=== PATIENT | female | born 1965 | race Caucasian/White ===

== ENCOUNTER 2024-06-10 10:27 | Emergency (ER) | payer MEDICARE, SELFPAY ==
--- NOTE | ~2024-06-10 | CT_ITS ---
CLINICAL HISTORY: left breast chest pain pain CT chest with contrast Comparison: None Findings: The heart size is normal. The visualized thyroid and mediastinum are unremarkable. No consolidation or effusion. There are 2 small liver cysts. The bones are intact. IMPRESSION: 1. Unremarkable chest CT. This document has been electronically signed by: Elinor Moore MD on 06/10/2024 14:20:21
[2024-06-10 10:34] VITALS: BP 135/73; PULSE 95; RESP 20; TEMP 36; O2SAT 97; BMI 33.3
--- NOTE | 2024-06-10 10:41 | ECG_ITS ---
Test Reason : breast/chest pain Blood Pressure : */* mmHG Vent. Rate : 87 BPM Atrial Rate : 87 BPM P-R Int : 148 ms QRS Dur : 76 ms QT Int : 376 ms P-R-T Axes : 46 44 21 degrees QTcB Int : 452 ms Normal sinus rhythm Cannot rule out Anterior infarct , age undetermined ; could be related to body habitus and lead placement Abnormal ECG No previous ECGs available Referred By: Generic ED Physician Electronically Signed By: SHAY DUNHAM
--- NOTE | 2024-06-10 11:09 | ED.GENADULT ---
HPI - General Adult General Chief complaint: General Medical Stated complaint: breast pain and itch Time Seen by Provider: 06/10/24 11:03 Source: patient Mode of arrival: ambulatory Limitations: no limitations History of Present Illness ED Provider: JAMILA MORENO PA-C HPI narrative: 59 year old female with pmhx significant for HDL presents to the ED today for evaluation of left breast pain/itching x1 year, worsening over the last few weeks. Reports itching has become more intense over the last few weeks/days. Itching/pain localized around nipple with occasional radiation into breast. At times, the breast appears erythematous. She states the itching becomes so severe she wants to pull her breast off of her. Denies any drainage from the nipple. Admits to 2-3 lumps in the breast that have been there for some time. She has never been old she has dense breast tissue. Denies pain in her right breast. Denies chest pain. She has not trialed any OTC medications for this. She had a mammogram done 1 year ago in [place] at onset of pain. She states this was normal. She has since moved to [place]. She does not have any providers to follow up with here. Reports familial history of breast cancer (mother, aunt, grandmother). Denies OCP use. Denies smoking tobacco. Related Data Previous Rx's ?Medication ?Instructions ?Recorded hydroxyzine HCl 25 mg tablet 25 mg PO Q8H PRN itching #30 tabs 06/10/24 naproxen 500 mg tablet 500 mg PO Q12H PRN pain (scale 06/10/24 score 1-3) #20 tabs Allergies Allergy/AdvReac Type Severity Reaction Status Date / Time acetaminophen [From Percocet] Allergy Anaphylaxis Verified 06/10/24 10:39 codeine Allergy Anaphylaxis Verified 06/10/24 10:39 oxycodone [From Percocet] Allergy Anaphylaxis Verified 06/10/24 10:39 Review of Systems Review of Systems: Constitutional: No fever, chills, fatigue, night sweats, weight changes ENT/Mouth: No ear pain, hearing loss, nasal congestion, sinus pain, rhinorrhea, sore throat Eyes: No eye pain, swelling, redness, vision changes, discharge Cardio: No chest pain, palpitations, KENDRICK, orthopnea, peripheral edema Pulm: No SOB, cough, sputum, wheezing, dyspnea, hemoptysis GI: No nausea, vomiting, hematemesis, abdominal pain, diarrhea, constipation, hematochezia, melena : No irregular bleeding, dysuria, frequency, urgency, hesitancy, hematuria, flank pain, urinary flow changes, urinary incontinence or retention MSK: No back pain, neck pain, joint pain, myalgias Skin: No lesions, rashes, +breast pain/ itching Neuro: No weakness, numbness, paresthesias, LOC, dizziness, headache Psych: No anxiety/panic, depression, SI/HI, AH/VH All other systems reviewed and are negative. [facility] Past Medical History Attestation statement: The following information was validated with the patient. Source: old records reviewed and nursing notes reviewed Social History Social History Smoked in Last 30 Days: No Use of substances other than those prescribed or required for medical reasons: No Advance Directives: No Advance Directives Information Provided: Yes Do you have a plan to hurt others: No Plan Patient : No Physical Exam ED Vital Signs: Vital Signs - 24 hr 06/10/24 10:34 06/10/24 14:01 06/10/24 15:34 Temperature 96.8 F 97.7 F 98.3 F Pulse Rate 95 65 67 Respiratory Rate 20 16 16 Blood Pressure 135/73 118/63 113/62 Pulse Oximetry 97 98 98 Oxygen Delivery Method Room Air Room Air Room Air BMI result Body Mass Index 33.3 vital signs stable, afebrile General: Well appearing, in no acute distress. Skin: Warm, dry, intact. No rashes or lesions. Head: Normocephalic, atraumatic. Neck: Supple without LAD Cardiac: Chest wall symmetric. RRR Lungs: Normal respiratory effort without accessory muscle use. CTA bilaterally Breast: +no axillary LAD. no erythema/ skin changes noted to left breast. no enlargement when compared to right breast. no rippling/dimpling. no peau de orange apperance. ttp of entire left breast, more so in the LIQ/LOQ, no palpable breast masses. no expressible discharge from L nipple. exam R breast unremarkable. Abdomen: Soft, non-tender, non-distended. No rebound tenderness or guarding Neuro: AOx3. Normal speech. Ambulating with steady gait. Course Course Course Narrative: 1557 -- workup is quite unremarkable. CBC without leukocytosis or left shift. H&H stable. Inflammatory markers mildly elevated with ESR of 31 and CRP of 1.37. Nonspecific. Chemistry is without acute electrolyte abnormality requiring intervention. No ZANE. Liver function at baseline. Troponin undetectable. EKG showing normal sinus rhythm with a rate of 87 beats per minute, no acute ischemic changes or ST elevations. CT chest with contrast unremarkable. > US breast not ordered as I do not suspect abscess. I discussed all work up results with patient. she has received toradol for pain and atarax for itching with improvement in symptoms. her exam is quite benign and I have low suspicion for acute inflammatory breast cancer however I have informed patient that breast cancer cannot be definitively ruled out today. She will need an outpatient US/ mammogram. She is currently in the process of establishing care with [place] providers. I have provided her with a physical list (and list in d/c instructions) of providers that she can call to follow up with. She may be able to have an US done at walk in clinic. contact info provided. I also provided her with contact information for [facility] [place] women's health dr. moore. advised to call tomorrow morning to establish care. She verbalizes understanding. I am sending her home with naproxen and atarax. Patient has remained stable throughout ED visit today. Discussed worrisome signs and symptoms and when to return to the ED. All questions answered at this time. Patient is agreeable with disposition and stable for discharge. Medications Administered Discontinued Medications Generic Name Dose Route Start Last Admin Trade Name Davon PRN Reason Stop Dose Admin Hydroxyzine HCl 25 mg 06/10/24 14:36 06/10/24 14:47 Hydroxyzine Hcl 25 Mg Tablet PO 06/10/24 14:37 25 mg ONCE ONE Administration Iohexol 100 ml 06/10/24 12:55 06/10/24 12:55 Iohexol 350 Mg/Ml 100 Ml Infus..Btl IV 06/10/24 12:56 65 ml ONCE ONE Administration Ketorolac Tromethamine 15 mg 06/10/24 11:49 06/10/24 12:21 Ketorolac Tromethamine 15 Mg/Ml Vial IVPUSH 06/10/24 11:50 15 mg ONCE ONE Administration Medical Decision Making Medical Decision Making [facility] Narrative: 59 year old female with pmhx significant for HDL presents to the ED today for evaluation of left breast pain/itching x1 year, worsening over the last few weeks. Vital signs stable. afebrile. she is nontoxic appearing and in NAD. on exam of left breast, no axillary LAD. no erythema/ skin changes noted to left breast. no enlargement when compared to right breast. no rippling/dimpling. no peau de orange apperance. ttp of entire left breast, more so in the LIQ/LOQ, no palpable breast masses. no expressible discharge from L nipple. exam R breast unremarkable. Differential diagnosis includes inflammatory breast cancer, noninflammatory breast cancer, cellulitis, ductal ectasia. lower susupicion for breast abscess, mastitis. unlikely ACS, arrhythmia, pneumonia, pneumothorax, PE. Plan for screening labs, inflammatory makers, CT chest w/ con, pain control, and re-evaluation. Differential Diagnosis Differential Diagnoses: The differential diagnosis associated with the presentation includes as above. Admission/Observation not indicated. Lab Data [facility] Lab Attestation statement: I reviewed the patient's lab results. as above. 06/10/24 11:57 06/10/24 11:57 Labs: Lab Results 06/10/24 Range/Units 11:57 WBC 6.0 (4.8-10.8) X10*3/uL RBC 4.35 (4.20-5.50) X10*6/uL Hgb 12.0 (12.0-16.0) g/dl Hct 36.2 L (37.0-47.0) % MCV 83.2 (80.0-98.0) fL MCH 27.6 (27.0-33.0) pg MCHC 33.1 (31.0-35.0) g/dl RDW 12.8 (11.0-16.0) % Plt Count 315 (160-400) X10*3/uL MPV 8.8 L (9.4-12.3) fL Immature Gran % (Auto) 0.2 (0.0-0.4) % Neut % (Auto) 54.2 (45-73) % Lymph % (Auto) 33.9 (20-40) % Levy % (Auto) 7.5 (2-11) % Eos % (Auto) 3.5 (0-4) % Baso % (Auto) 0.7 (0-2) % Lymph # (Auto) 2.0 (1.2-4.9) X10*3/uL Levy # (Auto) 0.5 (0.1-1.2) X10*3/uL Eos # (Auto) 0.2 (0.0-0.4) X10*3/uL Baso # (Auto) 0.0 (0.0-0.2) X10*3/uL Abs Immat Gran (auto) 0.01 (0.00-0.03) X10*3/uL Absolute Neuts (auto) 3.3 (2.0-8.3) x10*3/uL Absolute Nucleated RBC 0.000 (0.0-0.012) X10*3/uL Nucleated RBC % (auto) 0.0 (0.0-0.2) /100WBC ESR 31 H (0-20) MM/HR Sodium 142 (135-145) mmol/L Potassium 4.1 (3.3-5.1) mmol/L Chloride 109 H (96-108) mmol/L Carbon Dioxide 25 (22-29) mmol/L Anion Gap 12 (12-20) BUN 15 (9-16) mg/dL Creatinine 0.72 (0.5-1.4) mg/dL Estim Creat Clear Calc 94.8 Estimated GFR > 60 Random Glucose 106 (60-115) mg/dL Calcium 9.3 (8.4-10.2) mg/dL Magnesium 2.0 (1.6-2.6) mg/dL Total Bilirubin 0.5 (0.0-1.0) mg/dL AST 21 (5-31) U/L ALT 22 (0-31) U/L Alkaline Phosphatase 110 (39-117) U/L Troponin I High Sens < 2.7 (<3.5-17.0) ng/L C-Reactive Protein 1.37 H (< or = 0.50) mg/dL Total Protein 7.3 (6.5-8.0) g/dL Albumin 4.1 (3.5-5.0) g/dL Lipase 12 (8-78) U/L Independent Interpretation I performed an independent interpretation of an: EKG and CT Scan Interpretation: CT chest without infiltrate or consolidation, no lungs masses EKG showing NSR w/ rate of 87 bpm, no acute ischemic changes or st elevations Radiology Impression Discussion of test interpretation with radiology: I have reviewed the radiologist's reading. Radiologist Impression: Procedure(s): CT chest w IV con Accession Number(s): [id number] cc: Jamila Moreno~ Report Number: [id number]: Total DLP = 253.00 mGy-cm CLINICAL HISTORY: left breast chest pain pain CT chest with contrast Comparison: None Findings: The heart size is normal. The visualized thyroid and mediastinum are unremarkable. No consolidation or effusion. There are 2 small liver cysts. The bones are intact. IMPRESSION: 1. Unremarkable chest CT. This document has been electronically signed by: Elinor Moore MD on 06/10/2024 14:20:21 Prescription Management I considered prescription management with: Other (Atarax, naproxen) Social Determinants Patient?s care significantly limited by Social Determinants of Health including: Other Social Determinant of Health Critical Care Time Critical Care Time Critical Care Time: No Discharge Plan Discharge Clinical Impression: Pain of left breast Patient Disposition: Home, Self-Care Instructions: Breast Mass (ED), Nipple Discharge (ED) Additional Instructions: Your blood work today is reassuring. Your inflammatory markers are mildly elevated today. This is nonspecific. The EKG of your heart is normal. The CT scan of your chest is normal. I am sending atarax (hydroxyzine) to your pharmacy for you to take as needed for itching. I am sending naproxen to your pharmacy for you to take as needed for pain/discomfort. Do not take this with other NSAIDs such as Motrin as this can cause increased risk of GI bleeding. As discussed, it was of the utmost importance that you follow-up outpatient for ultrasound/ mammogram to further assess for breast cancer. This cannot be definitively ruled out from an ED standpoint. I have provided you with a list of outpatient providers. Please call them to establish care, they will not call you. Return with new or worsening symptoms such as worsening pain, overlying redness, hardening or enlargement of the breast, discharge from the nipple, etc. In the case of an emergency call 911. Prescriptions: New naproxen 500 mg tablet 500 mg PO Q12H PRN (Reason: pain (scale score 1-3)) Qty: 20 0RF hydroxyzine HCl 25 mg tablet 25 mg PO Q8H PRN (Reason: itching) Qty: 30 0RF Referrals: [facility] [place] Family Medicine [Provider Group] [facility] Primary Care, Yasmani [Provider Group] [facility] [place] Primary Care,Gina [Provider Group] [facility] [place] Women's Services [Provider Group] - 2 days (breast pain/itching, family hx breast cancer - needs US/ mammogram) Print Language: Cuban
[2024-06-10 12:03] LABS: MANUAL DIFF FLAG NO
[2024-06-10 12:07] LABS: Basophils Percent Auto 0.7 % (0-2); Eosinophils Absolute Auto 0.2 X10*3/uL (0.0-0.4); Eosinophils Percent Auto 3.5 % (0-4); Hematocrit 36.2 % (37.0-47.0); Imm Gran Abs Auto 0.01 X10*3/uL (0.00-0.03); Imm Gran Pct Auto 0.2 % (0.0-0.4); Lymphocytes Percent Auto 33.9 % (20-40); Mean Corpuscular HGB Conc 33.1 g/dl (31.0-35.0); Mean Corpuscular Hemoglobin 27.6 pg (27.0-33.0); Mean Corpuscular Volume 83.2 fL (80.0-98.0); Mean Platelet Volume 8.8 fL (9.4-12.3); Monocytes Absolute Auto 0.5 X10*3/uL (0.1-1.2); Monocytes Percent Auto 7.5 % (2-11); Neutrophils Absolute Auto 3.3 x10*3/uL (2.0-8.3); Neutrophils Percent Auto 54.2 % (45-73); Platelet Count 315 X10*3/uL (160-400); Red Blood Count 4.35 X10*6/uL (4.20-5.50); Red Cell Distribution Width 12.8 % (11.0-16.0)
--- NOTE | 2024-06-10 12:11 | PC.NURSE ---
pt a&ox3, iv inserted, labs drawn, pt to be medicated for pain to left breast area, awaiting radiology
[2024-06-10 12:21] LABS: Alanine Aminotransferase 22 U/L (0-31); Albumin Level 4.1 g/dL (3.5-5.0); Alkaline Phosphatase 110 U/L (39-117); Anion Gap 12 (12-20); Aspartate Amino Transferase 21 U/L (5-31); Bilirubin Total 0.5 mg/dL (0.0-1.0); Blood Urea Nitrogen 15 mg/dL (9-16); C Reactive Protein 1.37 mg/dL (< or = 0.50); Calcium 9.3 mg/dL (8.4-10.2); Carbon Dioxide 25 mmol/L (22-29); Chloride 109 mmol/L (96-108); Creatinine Clr Calc Pharmacy 94.8; Estimated Glomerular Filt Rate > 60; Glucose Random 106 mg/dL (60-115); Lipase 12 U/L (8-78); Potassium 4.1 mmol/L (3.3-5.1); Sodium 142 mmol/L (135-145); Total Protein 7.3 g/dL (6.5-8.0)
[2024-06-10] MEDS: Ketorolac Tromethamine 15 MG/ML VIAL IVPUSH (12:21)
[2024-06-10 12:32] LABS: Troponin-I High Sensitivity < 2.7 ng/L (<3.5-17.0)
[2024-06-10 12:40] LABS: Erythrocyte Sedimentation Rate 31 MM/HR (0-20)
[2024-06-10] MEDS: iohexoL 350 MG/ML 100 ML INFUS..BTL IV (12:55)
[2024-06-10 14:01] VITALS: BP 118/63; PULSE 65; RESP 16; TEMP 36.5; O2SAT 98
--- NOTE | 2024-06-10 14:02 | PC.NURSE ---
patient a&ox3 pt still c/o 12/12 lt breast area pain, vss, awaiting results of testing, call baum within reach, plan of care ongoing
[2024-06-10] MEDS: hydrOXYzine HCL 25 MG TABLET PO (14:47)
--- NOTE | 2024-06-10 14:47 | PC.NURSE ---
pt medicated for itchiness
[2024-06-10 15:34] VITALS: BP 113/62; PULSE 67; RESP 16; TEMP 36.8; O2SAT 98
[2024-06-10 16:33] VITALS: BP 118/88; PULSE 69; RESP 16; TEMP 36.7; O2SAT 98
== END 2024-06-10 16:34 | disposition home or self-care (01) ==
PROVIDERS: Physician Assistant Medical; Emergency Provider Emergency Medicine
DX: N64.4 Mastodynia (principal); L29.9 Pruritus, unspecified; R07.89 Other chest pain; Z79.899 Other long term (current) drug therapy
CPT/HCPCS: 36415; 71260; 80053; 83690; 83735; 84484; 85025; 85652; 86140; 93005; 96374; 99284; 99285; J1885; Q9967

== ENCOUNTER → 2024-06-10 10:41 | Outpatient (BNV) | payer MEDICARE, SELFPAY | PROVIDERS: Emergency Provider Emergency Medicine; Visit Provider Internal Medicine | DX: R94.31 Abnormal electrocardiogram [ECG] [EKG] (principal); R07.9 Chest pain, unspecified | CPT/HCPCS: 93010 ==

== ENCOUNTER → 2024-06-10 11:47 | Outpatient (BNV) | payer MEDICARE, SELFPAY | PROVIDERS: Emergency Provider Emergency Medicine; Visit Provider Radiology Diagnostic Radiology | DX: R07.9 Chest pain, unspecified (principal) | CPT/HCPCS: 71260 ==